=== PATIENT | female | born 1955 | race Caucasian/White ===

== ENCOUNTER 2017-07-05 09:30 | Inpatient (IN) | payer MEDICAID, OTHER ==
[~2017-07-05] VITALS: Ht 170.2 cm; Wt 107.4 kg
[~2017-07-05 09:30] MED LIST: LEVE500T8 PO; LEVO125T5 PO; METF10002 PO; PHEN100T2; SIMV20TA3 PO; SITA100T PO
[2017-07-05] MEDS ORDERED: SODIUM CHLORIDE FLUSH 10ML SYR IVF ONE ×2 (10:00→11:00)
[2017-07-05] MEDS ORDERED: ASPIRIN 81 MG TABLET CHEW PO ONE (10:00)
[2017-07-05 10:28] LABS: ASPARTATE AMINO TRANSFERASE 32 U/L (15-37); BLOOD UREA NITROGEN 13 mg/dL (7-18)
[2017-07-05 10:34] LABS: HEMATOCRIT 39.4 % (34.6-47.8); HEMOGLOBIN 13.3 g/dL (11.7-16.4); IS PT STATUS REG ER OR PRE ER? YES; WHITE BLOOD COUNT 9.9 x10^3/uL (3.4-10)
[2017-07-05] MEDS ORDERED: ASPIRIN 81 MG TABLET CHEW ONE (10:42)
[2017-07-05] MEDS ORDERED: SODIUM CHLORIDE 0.9% 1,000ML IVBOLUS ONE (11:00)
[2017-07-05] MEDS ORDERED: hydrALAzine 20 MG/ML, 1ML IVPush PRN (15:30)
[2017-07-05] MEDS ORDERED: ACETAMINOPHEN 325 MG TABLET PO PRN (15:30)
[2017-07-05] MEDS ORDERED: MORPHINE SULFATE 4 MG/ML, 1ML IVPush PRN (15:30)
[2017-07-05] MEDS ORDERED: DOCUSATE 100 MG CAPSULE PO PRN (15:30)
[2017-07-05] MEDS ORDERED: ONDANSETRON 2MG/ML, 2ML IVPush PRN (15:30)
[2017-07-05] MEDS ORDERED: HEPARIN 5,000 UNITS/ML, 1ML SQ SCH (15:30)
[2017-07-05] MEDS ORDERED: BISACODYL 10 MG SUPP PR PRN (15:30)
[2017-07-05] MEDS ORDERED: OXYcodone IR 5MG TABLET PO PRN (15:30)
[2017-07-05] MEDS ORDERED: ENALAPRILAT 1.25 MG/ML, 2ML IVPush PRN (15:30)
[2017-07-05] MEDS ORDERED: POLYETHYLENE GLYCOL 17 GM PACKET PO PRN (15:30)
[2017-07-05] MEDS: INSULIN ASPART 100 UNITS/ML, PEN SQ-INSULIN SCH ×2 (16:41→23:12)
[2017-07-05] MEDS: SODIUM CHLORIDE 0.9% 1,000 ML IV SCH (16:41)
[2017-07-05] MEDS ORDERED: HEPARIN 5,000 UNITS/ML, 1ML ONE (17:37)
[2017-07-05] MEDS: LEVETIRACETAM 500 MG TABLET PO SCH ×2 (18:09→23:11)
[2017-07-05 19:20] LABS: IS PT STATUS REG ER OR PRE ER? YES
[2017-07-05 20:50] VITALS: BP 122/81
[2017-07-05] MEDS: SIMVASTATIN 20 MG TABLET PO SCH (23:11)
[2017-07-06 01:09] LABS: IS PT STATUS REG ER OR PRE ER? NO
[2017-07-06] MEDS: HEPARIN 5,000 UNITS/ML, 1ML SQ SCH ×3 (02:06→18:25)
[2017-07-06 02:11] VITALS: BP 115/68
[2017-07-06] MEDS: ASPIRIN 325 MG TABLET EC PO SCH (05:09)
[2017-07-06] MEDS: LEVOTHYROXINE 125 MCG TABLET PO SCH (05:09)
[2017-07-06] MEDS: SODIUM CHLORIDE 0.9% 1,000 ML IV SCH ×2 (05:09→18:25)
[2017-07-06 05:17] LABS: HEMATOCRIT 37.8 % (34.6-47.8); HEMOGLOBIN 12.8 g/dL (11.7-16.4)
[2017-07-06 05:29] LABS: BLOOD UREA NITROGEN 11 mg/dL (7-18)
[2017-07-06 05:33] LABS: ASPARTATE AMINO TRANSFERASE 37 U/L (15-37)
[2017-07-06] MEDS: INSULIN ASPART 100 UNITS/ML, PEN SQ-INSULIN SCH ×4 (07:00→21:38)
[2017-07-06] MEDS: LEVETIRACETAM 500 MG TABLET PO SCH ×3 (08:54→21:39)
[2017-07-06 09:10] VITALS: BP 105/67
[2017-07-06] MEDS ORDERED: CEFTRIAXONE PMX 1GM/50ML 50 ML IV SCH (12:30)
[2017-07-06] MEDS ORDERED: REGADENOSON 0.4 MG/5 ML SYRINGE ONE (12:37)
[2017-07-06 15:00] VITALS: BP 111/65
[2017-07-06] MEDS: metFORMIN 500 MG TABLET PO SCH (18:36)
[2017-07-06 18:49] VITALS: BP 103/67
[2017-07-06] MEDS ORDERED: ATORVASTATIN 20 MG TABLET PO SCH (21:00)
[2017-07-06] MEDS: INSULIN DETEMIR 100 UNITS/ML, PEN SQ-INSULIN SCH (21:38)
[2017-07-06] MEDS: SIMVASTATIN 20 MG TABLET PO SCH (21:39)
[2017-07-07 02:08] VITALS: BP 102/67
[2017-07-07] MEDS: HEPARIN 5,000 UNITS/ML, 1ML SQ SCH ×2 (02:44→08:11)
[2017-07-07] MEDS: SODIUM CHLORIDE 0.9% 1,000 ML IV SCH (04:42)
[2017-07-07] MEDS: LEVOTHYROXINE 125 MCG TABLET PO SCH (04:42)
[2017-07-07] MEDS: ASPIRIN 325 MG TABLET EC PO SCH (04:42)
[2017-07-07] MEDS ORDERED: CEFD300C37 PO (07:48)
[2017-07-07] MEDS ORDERED: SIMV40TA PO (07:48)
[2017-07-07] MEDS ORDERED: ASPI-621 PO (07:48)
[2017-07-07] MEDS ORDERED: INSU100I28 SQ (07:48)
[2017-07-07] MEDS: LEVETIRACETAM 500 MG TABLET PO SCH (08:10)
[2017-07-07] MEDS: metFORMIN 500 MG TABLET PO SCH (08:10)
[2017-07-07] MEDS: INSULIN ASPART 100 UNITS/ML, PEN SQ-INSULIN SCH ×2 (08:11→12:11)
[2017-07-07] MEDS: INSULIN DETEMIR 100 UNITS/ML, PEN SQ-INSULIN SCH (08:12)
[2017-07-07 08:34] VITALS: BP 133/79
== END 2017-07-07 13:16 | disposition home or self-care (01) | DRG 638 ==
LOC: ED 10:17 → EDIP 10:54 → 5SO 21:01 → DCLOUNGE 07-07 13:05
PROVIDERS: ADMIT Internal Medicine; ATTEND Internal Medicine
DX: E11.65 Type 2 diabetes mellitus with hyperglycemia (principal); E87.1 Hypo-osmolality and hyponatremia; E83.42 Hypomagnesemia; N39.0 Urinary tract infection, site not specified; R07.9 Chest pain, unspecified; E03.9 Hypothyroidism, unspecified; B95.1 Streptococcus, group B, as the cause of diseases classified elsewhere; E78.5 Hyperlipidemia, unspecified; G40.909 Epilepsy, unspecified, not intractable, without status epilepticus; Z59.0 Homelessness; Z79.4 Long term (current) use of insulin; Z79.82 Long term (current) use of aspirin; Z80.49 Family history of malignant neoplasm of other genital organs; Z83.3 Family history of diabetes mellitus; Z88.0 Allergy status to penicillin
CPT/HCPCS: 36415; 71010; 78452; 80053; 80061; 81001; 82010; 82800; 82962; 83036; 83690; 83735; 84436; 84439; 84443; 84481; 84484; 85025; 87086; 87147; 93005; 93017; 96372; J0696; J1644; J1815; J2785; A9502; C9898; J7030

== ENCOUNTER 2019-04-01 17:35 | Emergency (ER) | payer SELFPAY ==
[~2019-04-01] VITALS: Ht 170.2 cm; Wt 102.6 kg
[~2019-04-01 17:35] MED LIST changes: +ASPI81TA45 PO; +CEFD300C37 PO; +INSU100I28 SQ; +SIMV40TA PO
[2019-04-01] MEDS ORDERED: ASPIRIN 81 MG TABLET CHEW PO ONE (18:30)
--- NOTE | 2019-04-01 18:45 | NUR ---
[facility]
[2019-04-01 18:48] LABS: BASOPHILS # (AUTO) 0.07 x10^3/uL (0-0.1); BASOPHILS % (AUTO) 1 % (0-1); EOSINOPHILS # (AUTO) 0.47 x10^3/uL (0-0.4); EOSINOPHILS % (AUTO) 5 % (1-7); LYMPHOCYTES # (AUTO) 2.87 x10^3/uL (1-3.4); LYMPHOCYTES % (AUTO) 29 % (22-44); MD NO; MEAN CORPUSCULAR HEMOGLOBIN 31.4 pg (27.0-34.8); MEAN CORPUSCULAR HGB CONC 32.9 g/dL (32.4-35.8); MEAN CORPUSCULAR VOLUME 95.3 fL (80-100); MEAN PLATELET VOLUME 8.3 fL (7.4-10.4); MONOCYTES # (AUTO) 0.68 x10^3/uL (0.2-0.8); MONOCYTES % (AUTO) 7 % (2-9); NEUTROPHILS # (AUTO) 5.87 x10^3/uL (1.8-6.8); NEUTROPHILS % (AUTO) 59 % (42-75); PLATELET COUNT 320 x10^3/uL (130-400); RED BLOOD COUNT 4.27 x10^6/uL (3.82-5.3); RED CELL DISTRIBUTION WIDTH 13.3 % (9.6-15.2)
[2019-04-01 18:58] LABS: ALBUMIN 3.7 g/dL (3.4-5.0); ANION GAP 8 mmol/L (5-15); CALCIUM 8.9 mg/dL (8.5-10.1); CHLORIDE 103 mmol/L (98-107); CREATININE 1.06 mg/dL (0.55-1.02)
[2019-04-01 19:02] LABS: TROPONIN I < 0.015 ng/mL (0.000-0.045)
[2019-04-01 19:58] VITALS: BP 112/55
--- NOTE | 2019-04-01 20:11 | NUR ---
Patient/Caregiver given discharge instructions and they have confirmed that they understand the instructions. Patient ambulatory with steady gait.
== END 2019-04-01 20:13 | disposition home or self-care (01) ==
LOC: ED 20:05
DX: M25.551 Pain in right hip (principal); E11.9 Type 2 diabetes mellitus without complications
CPT/HCPCS: 36415; 71046; 80048; 82040; 83880; 84484; 85025; 93005; 99284